=== PATIENT | female | born 1935 | race Caucasian/White ===

== ENCOUNTER → 2017-10-12 09:55 | Outpatient (CLI) | payer MEDICARE, OTHER, SELFPAY ==
--- NOTE | 2017-10-12 10:08 | XR_ITS ---
XR DEXA axial skeleton HISTORY: ITS.REASON: OSTEOPENIA ORDERING PHYSICIAN: Sasha Tamayo PATIENT AGE: 81 years COMPARISON: 12/21/2012 FINDINGS: The BMD measured at the Radius 33% is 0.608 g/cm squared with a T score of -3.1 . This is considered Osteoporotic according to the World Health Organization criteria. Fracture risk is high. Treatment is advised. Lumbar spine density from L1 to L4 has a T score of 0.7 which is similar compared to the previous exam IMPRESSION: Osteoporosis with high fracture risk. Recommend follow-up exam September 2018. Treatment is recommended
== END ==
PROVIDERS: PCP Nurse Practitioner Women's Health; Visit Provider Nurse Practitioner Women's Health
DX: M85.89 Other specified disorders of bone density and structure, multiple sites (principal)
CPT/HCPCS: 77080

== ENCOUNTER → 2018-09-19 15:53 | Outpatient (CLI) | payer MEDICARE, OTHER, SELFPAY ==
--- NOTE | 2018-09-19 15:59 | MM_ITS ---
MM Dig screening mamm BI w/CAD CAD Screening COMPARISON: Digital mammograms with CAD 06/16/2015 and 03/20/2017 INDICATIONt: The patient has had previous bilateral lumpectomies for malignancy TECHNIQUE: Standard CC and MLO images were obtained. R2 CAD reviewed. FINDINGS: There is a diffusely dense and heterogenic parenchymal pattern definitely lessening the sensitivity of mammography. There is no significant post lumpectomy scarring in either breast. There are multiple scattered benign-appearing micro and macrocalcifications in each breast. There is a biopsy clip right breast. There is no suspicious lesion and there are no suspicious microcalcifications. IMPRESSION: Diffusely dense and heterogenic parenchymal pattern with no suspicious lesion seen BI-RADS Category: 2 Benign Finding(s) RECOMMENDED FOLLOW-UP: 1YR - 1 YEAR FOLLOW-UP (A letter has been sent to the patient regarding results of the study.)
== END ==
PROVIDERS: PCP Nurse Practitioner Women's Health; Visit Provider Nurse Practitioner Women's Health
DX: Z12.31 Encounter for screening mammogram for malignant neoplasm of breast (principal)
CPT/HCPCS: 77067

== ENCOUNTER → 2018-10-20 09:00 | Outpatient (CLI) | payer MEDICARE, OTHER, SELFPAY ==
[2018-10-20 10:20] LABS: Alanine Aminotransferase 30 U/L (12-78); Albumin Level 3.7 gm/dL (3.4-5.0); Albumin/Globulin Ratio 0.9 (1.1-1.8); Alkaline Phosphatase 89 U/L (46-116); Anion Gap 15.7 mEq/L (5-15); Aspartate Amino Transferase 25 U/L (15-37); Bilirubin,Total 0.6 mg/dL (0.2-1.0); Blood Urea Nitrogen 12 mg/dL (7-18); Calcium 9.8 mg/dL (8.5-10.1); Carbon Dioxide 26 mmol/L (21.0-32.0); Chloride 101 mmol/L (98-107); Estimated Glomerular Filt Rate 53 ml/min (>60); GFR (African American) 65 ML/MIN (>60); Globulin 4.3 gm/dl (1.3-3.2); Glucose 115 mg/dL (74-106); Potassium 3.7 mmoL/L (3.5-5.1); Sodium 139 mmol/L (136-145)
== END ==
PROVIDERS: Visit Provider Nurse Practitioner Women's Health
DX: I10 Essential (primary) hypertension (principal)
CPT/HCPCS: 36415; 80053

== ENCOUNTER 2019-04-12 12:07 | Observation (INO) ==
--- NOTE | 2019-04-12 13:18 | Emergency Department Note ---
ED Disposition Clinical Impression: Syncope Disposition: Still a Patient Condition on Discharge: Good Instructions: DI for Syncope in Adults (Fainting), DI for Syncope in Children (Fainting) Referrals: Sasha Tamayo [Primary Care Provider] - - Critical Care Critical Care Time: No Attestation: On 04/12/19, the high probability of a clinically significant, sudden or life threatening deterioration of the following system(s) required my full and direct attention, intervention and personal management. The time I documented below is in addition to time spent performing reported procedures but includes the following listed in this critical care notation. Medical Decision Making - Sixto Inquiry Pt receiving controlled substance: No Sixto was queried for this patient: No Vital Signs: 04/12/19 12:08 04/12/19 12:38 04/12/19 13:08 Pulse Rate [Radial] 96 H 89 99 H Respiratory Rate 14 Blood Pressure [Right Arm] 164/101 H 161/80 H 161/93 H Blood Pressure Mean [Right Arm] 122 107 115 Blood Pressure Source [Right Arm] Automatic Cuff Blood Pressure Position [Right Arm] Supine 02 Sat by Pulse Oximetry 97 93 L 93 L Oxygen Delivery Method Room Air 04/12/19 13:50 04/12/19 14:00 04/12/19 14:59 Pulse Rate [Radial] 87 84 89 Respiratory Rate 20 Blood Pressure [Right Arm] 151/88 H 134/83 142/83 H Blood Pressure Mean [Right Arm] 109 100 102 Blood Pressure Source [Right Arm] Automatic Cuff Automatic Cuff Blood Pressure Position [Right Arm] Sitting Sitting 02 Sat by Pulse Oximetry 94 L 96 94 L Oxygen Delivery Method Room Air - Lab Data Lab Results 04/12/19 13:38: WBC 7.3, RBC 4.67, Hgb 14.3, Hct 46.1, MCV 98.7, MCH 30.7, MCHC 31.1 L, RDW 12.9, Plt Count 318, MPV 8.5, Neut % (Auto) 66.6, Lymph % (Auto) 21.9, [place] % (Auto) 8.8, Eos % (Auto) 1.5, Baso % (Auto) 1.3, Neut # (Auto) 4.9, Lymph # (Auto) 1.6, [place]ie # (Auto) 0.6, Eos # (Auto) 0.1, Baso # (Auto) 0.1 04/12/19 13:38: D-Dimer 1020 H* 04/12/19 13:55: Sodium 144, Potassium 3.0 L, Chloride 101, Carbon Dioxide 33 H, Anion Gap 13.0, BUN 23 H, Creatinine 1.00, Estimated Creat Clear 39, Estimated GFR 53 L, Est GFR ( Amer) 64, Glucose 79, Calcium 8.8, Total Bilirubin 0.4, AST 22, ALT 12, Alkaline Phosphatase 128 H, Troponin I < 0.02, Total Protein 6.8, Albumin 2.5 L, Globulin 4.3 H, Albumin/Globulin Ratio 0.6 L Result diagrams: 04/12/19 13:38 04/12/19 13:55 Orders (Tests/Meds): ED MEDICATIONS Discontinued Medications Generic Name Dose Route Start Last Admin Trade Name Freq PRN Reason Stop Dose Admin Metoprolol Tartrate 25 mg 04/12/19 13:36 04/12/19 14:03 Lopressor 25mg Tablet PO 04/12/19 13:37 25 mg ONCE STA Administration Potassium Chloride 40 meq 04/12/19 15:02 Klor-Con 20meq Tablet PO 04/12/19 15:03 ONCE ONE ORDERS Category Date Time Status Urinalysis and Microscopic Stat Lab 04/12/19 13:08 Ordered ECG repeat same Besson Stat Y 04/12/19 15:04 Ordered General Adult HPI - General Chief complaint: Syncope Stated complaint: has been passing out,heartburn Time Seen by Provider: 04/12/19 13:14 Mode of Arrival: Wheelchair Source of Information: Patient Limitations: No Limitations Description of Symptoms (Recalled from ER Triage Doc. by RN): Monday she was in her kitchen and passed out. New blood pressure meds started on Monday. had heartburn. - History of Present Illness HPI narrative: 83-year-old female. Today is a Monday. She received new medicine for blood pressure on Monday([id number]/HCTZ 12.5) instead of losartan alone. she had syncopal episode on Monday and fell on the kitchen floor for few minutes and hit her head. She lives by herself and she was able to stand up. Next day she had heartburn which she never had before. She goes to [place] and she does not have a primary care physician here in town. Today she felt dizzy and almost had the same symptoms she had at home Monday. The symptoms lasted few seconds. No chest pain. No shortness of breath. No headache. The started her on a new medication for blood pressure including losartan and hydrochlorothiazide ( Losartan 50/HCTZ 12.5). She does not have diabetes. She does not have any headache problems. She had some heart burn on Monday. The symptoms happened when she tried to stand up. Today when she felt dizzy she sat down and the sym ptoms did not occur. No history of coronary disease. Non-smoker. She takes pain medication oxycodone 20 twice a day. Also she takes thyroid medicine. 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 And history of excision of melanoma on her back over 20 years. She denied currently any chest pain or dyspnea. She looks comfortable with no distress. Onset (ago): minute(s) Radiation: non-radiation Severity: mild Severity scale (1-10): 2 Consistency: intermittent Relieving factors: none Exacerbating factors: movement Associated symptoms: denies other symptoms - Related Data Allergies Allergy/AdvReac Type Severity Reaction Status Date / Time Iodinated Contrast Media - Allergy Intermediate I-HIVES Unverified 06/13/17 15:13 Oral and [Iodinated Contrast Media - IV Dye] morphine Allergy Mild HALLUCINATI Unverified 06/13/17 15:13 ONS enoxaparin Allergy Unknown Unverified 06/13/17 15:13 [facility] History - Hepatitis A Screen Drug use history?: No High risk sexual behaviors?: No History of sexually transmitted infection?: No Currently employed?: No Childcare worker?: No Do you have indoor plumbing?: Yes Do you have electricity?: Yes Attestation statement:: This patient has been screened for Hepatitis A risk factors. - Social History Educational Level: Completed High School Alcohol Intake: never Occupational Status: retired Housing: house ROS Obtained: Yes All systems reviewed & no additional complaints - Constitutional Constitutional: Reports system reviewed and no additional complaints, except as docu - Eyes Eyes: Reports system reviewed and no additional complaints, except as docu - ENT Ears, Nose, Mouth, and Throat: Reports system reviewed and no additional complaints, except as docu - Cardiovascular Cardiovascular: Reports system reviewed and no additional complaints, except as docu - Respiratory Respiratory: Yes system reviewed and no additional complaints, except as docu - Gastrointestinal Gastrointestingal: Reports: system reviewed and no additional complaints, except as docu - Genitourinary Male Genitourinary: Reports system reviewed and no additional complaints, except as docu Female Genitourinary: Reports system reviewed and no additional complaints, except as docu - Musculoskeletal Musculoskeletal: Reports system reviewed and no additional complaints, except as docu - Integumentary/Breasts Skin/Breast: Reports system reviewed and no additional complaints, except as docu - Neurologic Neurologic: Reports system reviewed and no additional complaints, except as docu - Endocrine Endocrine: Reports system reviewed and no additional complaints, except as docu - Hematologic/Lymphatic Henatologic/Lymphatic: Reports system reviewed and no additional complaints, except as docu - Allergic/Immunologic Allergic/Immunologic: Reports system reviewed and no additional complaints, except as docu Physical Exam - General General appearance: alert, in no apparent distress - Head Head exam: atraumatic, normocephalic, normal inspection - Eye Eye exam: Present: normal appearance, PERRL, EOMI - ENT ENT exam: Present: normal exam, normal oropharynx, mucous membranes moist, TM's normal bilaterally, normal external ear exam - Neck Neck exam: Present: normal inspection, full ROM, trachea midline. Absent: meningismus, lymphadenopathy - Chest Chest inspection: Present: normal inspection, symmetric chest wall rise. Absent: tenderness - Respiratory Respiratory exam: Present: normal lung sounds bilaterally. Absent: respiratory distress - Cardiovascular Cardiovascular exam: Present: regular rate, normal rhythm. Absent: JVD - Abdominal Exam Abdominal exam: Present: soft, normal bowel sounds. Absent: distention, tenderness, guarding - Extremities Exam Extremities exam: Present: normal inspection, full ROM, normal capillary refill. Absent: calf tenderness - Back Exam Back exam: Present: normal inspection. Absent: tenderness - Neurological Exam Neurological exam: Present: alert, oriented X3 - Psychiatric Psychiatric exam: Present: normal affect, normal mood - Skin Skin exam: Present: warm, dry, intact, normal color - Lymphatic Lymphatic Findings: no adenopathy
[2019-04-12 14:28] LABS: Alanine Aminotransferase 12 U/L (12-78); Albumin Level 2.5 gm/dL (3.4-5.0); Albumin/Globulin Ratio 0.6 (1.1-1.8); Alkaline Phosphatase 128 U/L (46-116); Aspartate Amino Transferase 22 U/L (15-37); Bilirubin,Total 0.4 mg/dL (0.2-1.0); Blood Urea Nitrogen 23 mg/dL (7-18); Calcium 8.8 mg/dL (8.5-10.1); Carbon Dioxide 33 mmol/L (21.0-32.0); Chloride 101 mmol/L (98-107); Globulin 4.3 gm/dl (1.3-3.2); Glucose 79 mg/dL (74-106); Sodium 144 mmol/L (136-145); Total Protein,Serum 6.8 gm/dL (6.4-8.2)
[2019-04-12 14:35] LABS: Basophils # 0.1 K/mm3 (0-0.2); Basophils % 1.3 % (0.1-2.0); Eosinophils # 0.1 K/mm3 (0.0-0.4); Eosinophils % 1.5 % (0.1-12.0); Hematocrit 46.1 % (37.0-47.0); Hemoglobin 14.3 g/dL (12.2-16.2); Lymphocytes # 1.6 K/mm3 (0.7-4.5); Lymphocytes % 21.9 % (10-50); Mean Corpuscular HGB Conc 31.1 g/dL (31.8-35.4); Mean Corpuscular Volume 98.7 fl (81-99); Mean Platelet Volume 8.5 fl (7.4-10.4); Monocytes # 0.6 K/mm3 (0.1-1.0); Monocytes % 8.8 % (1.7-9.3); Neutrophils # 4.9 K/mm3 (1.8-7.8); Neutrophils % 66.6 % (37.0-80.0); Platelet Count 318 K/mm3 (142-424); Red Blood Count 4.67 M/mm3 (4.20-5.40); Red Cell Distribution Width 12.9 % (11.5-17.5); White Blood Count 7.3 K/mm3 (4.8-10.8)
--- NOTE | 2019-04-12 17:50 | History & Physical Report ---
*Admission Date: 04/12/19 *Chief complaint: syncope 3 days ago, dizzy today *History of present illness: Ms. Castrejon is an 83-year-old female with history of hypertension, GERD, breast cancer, melanoma (more than 30 years ago) who presented to the ER today after an episode of feeling dizzy for the second time this week. She states that she started a new medication for blood pressure last Monday which she believes was her losartan HCTZ combo. She tolerated it for a few days until Monday when she had an episode of standing after being in bed, walked to the living room sat down for a few minutes and when she got up to walk to the kitchen she passed out upon entering the kitchen falling to the floor. She denies any episode of tunnel vision, loss of bowel or bladder control, chest pain, shortness of breath. She was able to stand up after a while and had no further episodes that day. She does state that on Monday evening and she had what sounds to be vertigo type symptoms while in bed. She said while laying there she felt like she was going to fall out of bed but she was not moving. She turned her head from side to side and the sensation stopped. She states that today she had a similar episode where she felt dizzy upon entering the kitchen so she sat down on the floor until her dizziness resolved. She did not have an episode of actual syncope today. Was otherwise asymptomatic with no nausea, vomiting, chest pain. She goes to [place] and she does not have a primary care physician here in town. No history of coronary disease. Non-smoker. She takes pain medication daily but has for many years without incident. No acute distress on interview. Asymptomatic at this time. Patient was admitted to medicine for further observation and management of syncopal episode. [facility] History I have reviewed the patient's past medical history: Yes Medical History: Reports:: Cancer, Hyperlipidemia, Hypertension Denies:: Diabetes Mellitus Type 1, Diabetes Mellitus Type 2, MRSA *Have you ever received a pneumonia vaccine?: Yes *Have you received a flu vaccine this season?: Yes Other Medical History: Reports: Cataracts Other Surgeries: Yes: Cancer Surgery (X3) Amputation: No Fractures: No - *Social History Educational Level: Attended College Smoking Status: Former smoker # Packs/Day (cigarettes): 1 Alcohol Intake: current Alcohol Intake Frequency:: a few times a month *Occupational Status:: retired Housing: house *Travel in the last 8 weeks: None Family Hx:: Cancer, Diabetes, Hyperlipidemia, Hypertension Review of Systems - Review of Systems Review of systems:: pertinent systems reviewed and negative unless documented below Meds Home Medications Medication Instructions Recorded Confirmed Type Esomeprazole Magnesium [Nexium] 40 mg PO DAILY 04/12/19 04/12/19 History Felodipine [Felodipine ER] 10 mg PO DAILY 04/12/19 04/12/19 History Hydrocodone/Acetaminophen 2 mg PO DAILY 04/12/19 04/12/19 History [Hydrocodone-Acetamin 10-325 mg] Levothyroxine Sodium [Synthroid 112 mcg PO DAILY 04/12/19 04/12/19 History 112mcg (0.112mg) tablet] Losartan/Hydrochlorothiazide 1 tab PO DAILY 04/12/19 04/12/19 History [Losartan-Hctz 50-12.5 mg Tab] Allergies Allergy/AdvReac Type Severity Reaction Status Date / Time Iodinated Contrast Media - Allergy Intermediate I-HIVES Verified 04/12/19 15:47 Oral and [Iodinated Contrast Media - IV Dye] morphine Allergy Mild HALLUCINATI Verified 04/12/19 15:47 ONS enoxaparin Allergy Unknown Verified 04/12/19 15:47 Exam Vital signs and Labs for Last 24 Hours: Temp Pulse Resp BP Pulse Ox 97.9 F 75 17 154/74 H 96 04/12/19 16:17 04/12/19 16:17 04/12/19 16:17 04/12/19 16:17 04/12/19 16:17 Laboratory Results - last 24 hr 04/12/19 13:38: WBC 7.3, RBC 4.67, Hgb 14.3, Hct 46.1, MCV 98.7, MCH 30.7, MCHC 31.1 L, RDW 12.9, Plt Count 318, MPV 8.5, Neut % (Auto) 66.6, Lymph % (Auto) 21.9, [place] % (Auto) 8.8, Eos % (Auto) 1.5, Baso % (Auto) 1.3, Neut # (Auto) 4.9, Lymph # (Auto) 1.6, [place]k # (Auto) 0.6, Eos # (Auto) 0.1, Baso # (Auto) 0.1 04/12/19 13:38: D-Dimer 1020 H* 04/12/19 13:55: Sodium 144, Potassium 3.0 L, Chloride 101, Carbon Dioxide 33 H, Anion Gap 13.0, BUN 23 H, Creatinine 1.00, Estimated Creat Clear 39, Estimated GFR 53 L, Est GFR ( Amer) 64, Glucose 79, Calcium 8.8, Total Bilirubin 0.4, AST 22, ALT 12, Alkaline Phosphatase 128 H, Troponin I < 0.02, Total Protein 6.8, Albumin 2.5 L, Globulin 4.3 H, Albumin/Globulin Ratio 0.6 L I & O for Last 24 hours: Intake & Output 04/09/19 04/10/19 04/11/19 04/12/19 23:59 23:59 23:59 23:59 Weight 56.699 kg - Constitutional no acute distress, average body habitus - *Routine HEENT Exam Head: Present: normocephalic Eye: Present: EOMI, PERRL ENT: Present: mucous membranes moist - *Routine Neck Exam Present: supple. Absent: JVD, carotid bruit, lymphadenopathy - *Routine Respiratory Exam Present: CTA bilaterally - *Routine Cardiovascular Exam Present: RRR, Normal S1, Normal S2. Absent: murmur - *Routine Abdominal Exam Present: soft, normoactive bowel sounds. Absent: tenderness - *Routine Extremities Exam Present: pulses intact, normal capillary refill. Absent: cyanosis, clubbing, edema - *Routine Skin Exam Present: warm. Absent: rash - *Routine Neurological Exam Present: alert, oriented X3 Assessment and Plan (1) Hypokalemia Current visit: Yes Status: Acute Category: Medical Code(s): E87.6 - Hypokalemia We will hold HCTZ. Replete via IV and oral. Suspect due to diuretic usage. (2) Elevated BUN Current visit: Yes Status: Acute Category: Medical Code(s): R79.9 - A bnormal finding of blood chemistry, unspecified While patient does not have agus MYESHA or elevation in creatinine from labs obtained 6 months ago, her BUN has doubled in the past 6 months and suspect she is intravascularly depleted. We will give lactated Ringer's 1 L over 2 hours. 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 (5) Hypertension Current visit: Yes Status: Chronic Qualifiers: Hypertension type: essential hypertension Qualified Code(s): I10 - Essential (primary) hypertension Category: Medical Code(s): I10 - Essential (primary) hypertension Continue flow to pain, losartan. Initiated metoprolol for rate control as her EKG in the ER shows concern for multifocal atrial tachycardia. Stopped HCTZ. (6) GERD (gastroesophageal reflux disease) Current visit: Yes Status: Chronic Category: Medical Code(s): K21.9 - Gastro-esophageal reflux disease without esophagitis Continue home Nexium (7) Syncope Current visit: Yes Status: Acute Qualifiers: Syncope type: unspecified Qualified Code(s): R55 - Syncope and collapse Category: Medical Code(s): R55 - Syncope and collapse Symptoms sound highly suggestive of vasovagal syncope. Additionally patient's labs concerning for some mild dehydration. We will rehydrate and monitor on telemetry overnight. Recommended she ambulate with assistance while here to see if we can produce an episode similar to what she experienced at home. If no further episode while admitted overnight, anticipate discharge tomorrow with follow-up in the outpatient setting. Additionally has stopped diuretic. Will transition to different medications for blood pressure management.
[2019-04-13 07:21] LABS: Basophils # 0.2 K/mm3 (0-0.2); Basophils % 2.1 % (0.1-2.0); Eosinophils # 0.3 K/mm3 (0.0-0.4); Eosinophils % 3.7 % (0.1-12.0); Hematocrit 42.8 % (37.0-47.0); Hemoglobin 13.4 g/dL (12.2-16.2); Lymphocytes # 1.8 K/mm3 (0.7-4.5); Lymphocytes % 22.7 % (10-50); Mean Corpuscular HGB Conc 31.4 g/dL (31.8-35.4); Mean Corpuscular Volume 100.5 fl (81-99); Mean Platelet Volume 8.2 fl (7.4-10.4); Monocytes # 0.5 K/mm3 (0.1-1.0); Monocytes % 6.3 % (1.7-9.3); Neutrophils % 65.2 % (37.0-80.0); Platelet Count 345 K/mm3 (142-424); Red Blood Count 4.25 M/mm3 (4.20-5.40); Red Cell Distribution Width 12.8 % (11.5-17.5); White Blood Count 7.7 K/mm3 (4.8-10.8)
[2019-04-13 07:30] LABS: Anion Gap 13.4 mEq/L (5-15); Bilirubin,Total 0.5 mg/dL (0.2-1.0); Calcium 8.5 mg/dL (8.5-10.1)
[2019-04-13 07:31] LABS: Albumin Level 2.3 gm/dL (3.4-5.0); Albumin/Globulin Ratio 0.6 (1.1-1.8); Total Protein,Serum 6.3 gm/dL (6.4-8.2)
--- NOTE | 2019-04-13 08:35 | Pharmacy Consult Notes ---
[facility] Pharmacy VTE Monitoring - Patient Demographics Admission date: 04/13/19 Report Date: 04/13/19 Time: 08:35 Allergies/Adverse Reactions: Patient Allergies Iodinated Contrast Media - Oral and [Iodinated Contrast Media - IV Dye] Allergy (Intermediate, Verified 04/12/19 15:47) I-HIVES morphine Allergy (Mild, Verified 04/12/19 15:47) HALLUCINATIONS enoxaparin Allergy (Unknown, Verified 04/12/19 15:47) Height: 1.65 m Weight: 56.699 kg Patient Problems: Current Active Problems Syncope (Acute) Hypokalemia (Acute) Elevated BUN (Acute) Constipation due to opioid therapy (Chronic) Chronic, continuous use of opioids (Chronic) Hypertension (Chronic) GERD (gastroesophageal reflux disease) (Chronic) - VTE Risk Labs: VTE Related Lab Results Hgb 13.4 g/dL (12.2-16.2) 04/13/19 06:50 Hct 42.8 % (37.0-47.0) 04/13/19 06:50 Plt Count 345 K/mm3 (142-424) 04/13/19 06:50 BUN 17 mg/dL (7-18) D 04/13/19 06:50 Creatinine 0.93 mg/dL (0.55-1.02) 04/13/19 06:50 Estimated Creat Clear 39 mL/min (50-200) 04/13/19 06:50 Was VTE Risk Assessment Performed: Yes VTE Score: 2 VTE Risk Level: Very Low Risk - Prophylaxis Types of VTE Prophylaxis: TEDS Knee High (LINDA HOSE ORDER PLACED)
--- NOTE | 2019-04-13 12:57 | Discharge Summary ---
General - General Admission date:: 04/12/19 Discharge date: 04/13/19 HPI HPI: Ms. Castrejon is an 83-year-old female with history of hypertension, GERD, breast cancer, melanoma (more than 30 years ago) who presented to the ER today after an episode of feeling dizzy for the second time this week. She states that she started a new medication for blood pressure last Monday which she believes was her losartan HCTZ combo. She tolerated it for a few days until Monday when she had an episode of standing after being in bed, walked to the living room sat down for a few minutes and when she got up to walk to the kitchen she passed out upon entering the kitchen falling to the floor. She denies any episode of tunnel vision, loss of bowel or bladder control, chest pain, shortness of breath. She was able to stand up after a while and had no further episodes that day. She does state that on Monday evening and she had what sounds to be vertigo type symptoms while in bed. She said while laying there she felt like she was going to fall out of bed but she was not moving. She turned her head from side to side and the sensation stopped. She states that today she had a similar episode where she felt dizzy upon entering the kitchen so she sat down on the floor until her dizziness resolved. She did not have an episode of actual syncope today. Was otherwise asymptomatic with no nausea, vomiting, chest pain. She goes to [place] and she does not have a primary care physician here in town. No history of coronary disease. Non-smoker. She takes pain medication daily but has for many years without incident. No acute distress on interview. Asymptomatic at this time. Patient was admitted to medicine for further observation and management of syncopal episode. Hospital Course Hospital Course: Admitted for observation due to syncopal episode. Presentation most consistent with vasovagal syncope. Additionally patient's labs concerning for some mild dehydration. Rehydrated with IV fluids during admission. Replace electrolytes as needed. Monitored on telemetry overnight. Patient had no further events and remained hemodynamically stable. Initiated metoprolol due to concern for MAT on EKG. tolerated p.o. intake. Was able to ambulate with assistance while here without difficulty. She remained hemodynamically stable with no further episode while admitted overnight. Medically stable for discharge home. Recommend she follow-up with her primary care at the [place] in the outpatient setting. Additionally stopped diuretic. Will transition to different medications for blood pressure management per PCP when she follows up with them.. Objective Vital signs: Temp Pulse Resp BP Pulse Ox 97.8 F 75 18 184/90 H 96 04/13/19 07:42 04/13/19 08:00 04/13/19 07:42 04/13/19 07:42 04/13/19 07:52 Narrative: - Constitutional no acute distress, average body habitus - *Routine HEENT Exam Head: Present: normocephalic Eye: Present: EOMI, PERRL ENT: Present: mucous membranes moist - *Routine Neck Exam Present: supple. Absent: JVD, carotid bruit, lymphadenopathy - *Routine Respiratory Exam Present: CTA bilaterally - *Routine Cardiovascular Exam Present: RRR, Normal S1, Normal S2. Absent: murmur - *Routine Abdominal Exam Present: soft, normoactive bowel sounds. Absent: tenderness - *Routine Extremities Exam Present: pulses intact, normal capillary refill. Absent: cyanosis, clubbing, edema - *Routine Skin Exam Present: warm. Absent: rash - *Routine Neurological Exam Present: alert, oriented X3 Results Labs on day of discharge: Labs from last 24 hours 04/13/19 04/13/19 04/12/19 06:50 06:50 22:05 WBC 7.7 RBC 4.25 Hgb 13.4 Hct 42.8 MCV 100.5 H MCH 31.5 H MCHC 31.4 L RDW 12.8 Plt Count 345 MPV 8.2 Neut % (Auto) 65.2 Lymph % (Auto) 22.7 [place] % (Auto) 6.3 Eos % (Auto) 3.7 Baso % (Auto) 2.1 H Neut # (Auto) 5.0 Lymph # (Auto) 1.8 [place] # (Auto) 0.5 Eos # (Auto) 0.3 Baso # (Auto) 0.2 D-Dimer Sodium 143 Potassium 3.4 L Chloride 104 Carbon Dioxide 29 Anion Gap 13.4 BUN 17 D Creatinine 0.93 Estimated Creat Clear 39 Estimated GFR 58 L Est GFR ( Amer) 70 Glucose 69 L Calcium 8.5 Magnesium 1.1 L Total Bilirubin 0.5 AST 19 ALT 9 L Alkaline Phosphatase 113 Troponin I 0.04 Total Protein 6.3 L Albumin 2.3 L Globulin 4.0 H Albumin/Globulin Ratio 0.6 L TSH 04/12/19 04/12/19 04/12/19 18:59 18:59 13:55 WBC RBC Hgb Hct MCV MCH MCHC RDW Plt Count MPV Neut % (Auto) Lymph % (Auto) [place] % (Auto) Eos % (Auto) Baso % (Auto) Neut # (Auto) Lymph # (Auto) [place] # (Auto) Eos # (Auto) Baso # (Auto) D-Dimer Sodium 144 Potassium 3.0 L Chloride 101 Carbon Dioxide 33 H Anion Gap 13.0 BUN 23 H Creatinine 1.00 Estimated Creat Clear 39 Estimated GFR 53 L Est GFR ( Amer) 64 Glucose 79 Calcium 8.8 Magnesium Total Bilirubin 0.4 AST 22 ALT 12 Alkaline Phosphatase 128 H Troponin I 0.04 < 0.02 Total Protein 6.8 Albumin 2.5 L Globulin 4.3 H Albumin/Globulin Ratio 0.6 L TSH 0.79 04/12/19 04/12/19 13:38 13:38 WBC 7.3 RBC 4.67 Hgb 14.3 Hct 46.1 MCV 98.7 MCH 30.7 MCHC 31.1 L RDW 12.9 Plt Count 318 MPV 8.5 Neut % (Auto) 66.6 Lymph % (Auto) 21.9 [place] % (Auto) 8.8 Eos % (Auto) 1.5 Baso % (Auto) 1.3 Neut # (Auto) 4.9 Lymph # (Auto) 1.6 [place] # (Auto) 0.6 Eos # (Auto) 0.1 Baso # (Auto) 0.1 D-Dimer 1020 H* Sodium Potassium Chloride Carbon Dioxide Anion Gap BUN Creatinine Estimated Creat Clear Estimated GFR Est GFR ( Amer) Glucose Calcium Magnesium Total Bilirubin AST ALT Alkaline Phosphatase Troponin I Total Protein Albumin Globulin Albumin/Globulin Ratio TSH DS: Diagnosis - Discharge Diagnosis (1) Hypokalemia Status: Acute (2) Elevated BUN Status: Acute (3) 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 (4) Chronic, continuous use of opioids Status: Chronic (5) Hypertension Status: Chronic (6) GERD (gastroesophageal reflux disease) Status: Chronic (7) Syncope Status: Acute Discharge Plan - Patient Discharge Instructions - Follow up Plan Disposition: Home, Self-Senior Living Medications: Home Medications Medication Instructions Recorded Confirmed Type Felodipine [Felodipine ER] 10 mg PO DAILY 04/12/19 04/12/19 History Hydrocodone/Acetaminophen 1 tab PO BIDP PRN 04/12/19 04/13/19 History [Hydrocodone-Acetamin 10-325 mg] Levothyroxine Sodium [Synthroid 112 mcg PO DAILY 04/12/19 04/12/19 History 112mcg (0.112mg) tablet] Losartan Potassium 50 mg PO DAILY 30 Days #30 tab 04/13/19 Rx Metoprolol Tartrate [Lopressor 12.5 mg PO BID 30 Days #30 tab 04/13/19 Rx 25mg tablet] Omeprazole 20 mg PO BID 04/13/19 04/13/19 History Oxycodone HCl [OxyCONTIN 20mg 20 mg PO BID 04/13/19 04/13/19 History tab] Sennosides/Docusate Sodium 1 tab PO BIDP PRN 30 Days #60 tab 04/13/19 Rx [Senokot-S Tablet] raNITIdine HCl [Ranitidine HCl] 300 mg PO BID 04/13/19 04/13/19 History Prescriptions/Medication Reconciliation: New Sennosides/Docusate Sodium [Senokot-S Tablet] 1 tab PO BIDP PRN 30 Days #60 tab PRN Reason: Constipation Losartan Potassium 50 mg PO DAILY 30 Days #30 tab Metoprolol Tartrate [Lopressor 25mg tablet] 12.5 mg PO BID 30 Days #30 tab Continued Levothyroxine Sodium [Synthroid 112mcg (0.112mg) tablet] 112 mcg PO DAILY Hydrocodone/Acetaminophen [Hydrocodone-Acetamin 10-325 mg] 1 tab PO BIDP PRN PRN Reason: PAIN raNITIdine HCl [Ranitidine HCl] 300 mg PO BID Oxycodone HCl [OxyCONTIN 20mg tab] 20 mg PO BID Omeprazole 20 mg PO BID Felodipine [Felodipine ER] 10 mg PO DAILY Discontinued Losartan/Hydrochlorothiazide [Losartan-Hctz 50-12.5 mg Tab] 1 tab PO DAILY - Problem Reconciliation Problems Reviewed?: Yes
--- NOTE | 2019-04-14 14:12 | Electrocardiograph Report ---
APPROVED REPORT Exam: Resting ECG HR:69 bpm ECG Measurements Heart Rate 69 AXES [place] 188 P 81 QRSd 88 QRS 58 QT 408 T46 QTc 437 <Conclusion> Normal sinus rhythm ST abnormality, nonspecific, unchanged from prior Abnormal ECG Electronically signed by : Alfie Nevarez, 04/14/2019 14:12:23
--- NOTE | 2019-04-14 14:13 | Electrocardiograph Report ---
APPROVED REPORT Exam: Resting ECG HR:114 bpm ECG Measurements Heart Rate 114 AXES [place] 156 P 64 QRSd 74 QRS 58 QT 320 T65 QTc 441 <Conclusion> Sinus tachycardia with premature atrial complexes Nonspecific ST abnormality Abnormal ECG Electronically signed by : Alfie Nevarez, 04/14/2019 14:12:35
== END 2019-04-13 13:56 | disposition home or self-care (01) ==
LOC: 2ND 12:07 → ER 12:07 → 2ND 16:46
PROVIDERS: ADMIT Internal Medicine Adolescent Medicine; ATTEND Internal Medicine Adolescent Medicine
DX: R55 Syncope and collapse; F11.90 Opioid use, unspecified, uncomplicated; Z79.899 Other long term (current) drug therapy; Z85.3 Personal history of malignant neoplasm of breast; K59.03 Drug induced constipation; I10 Essential (primary) hypertension; K21.9 Gastro-esophageal reflux disease without esophagitis; E87.6 Hypokalemia; Z85.820 Personal history of malignant melanoma of skin; E79.9 Disorder of purine and pyrimidine metabolism, unspecified
CPT/HCPCS: 36415; 70450; 71010; 71045; 80053; 83735; 84443; 84484; 85025; 85378; 93005; 99284; G0378

== ENCOUNTER 2019-10-25 11:46 | Emergency (ER) | payer MEDICARE, OTHER, SELFPAY ==
[2019-10-25 11:47] VITALS: BP 155/78; PULSE 110; RESP 21; TEMP 36.6; O2SAT 92; BMI 21.6
--- NOTE | 2019-10-25 11:59 | HMH.EDGENADL ---
ED Disposition Clinical Impression: Sacroiliac inflammation Disposition: Home, Self-Care Condition on Discharge: Good Instructions: DI for Acute Pain -- Adult, DI Sacroiliac Joint Dysfunction Prescriptions: Cyclobenzaprine HCl [Flexeril 10mg tablet] 5 mg PO TID PRN #5 tab PRN Reason: spasm Prescription Printed Naproxen 500 mg PO BID PRN #10 tab PRN Reason: pain Prescription Printed Referrals: Sasha Tamayo [Primary Care Provider] - 3 days - Critical Care Critical Care Time: No Attestation: On 10/25/19, the high probability of a clinically significant, sudden or life threatening deterioration of the following system(s) required my full and direct attention, intervention and personal management. The time I documented below is in addition to time spent performing reported procedures but includes the following listed in this critical care notation. Medical Decision Making - Medical Records Medical records reviewed: Yes: I reviewed the patient's medical records. - Sixto Inquiry Pt receiving controlled substance: No Vital Signs: 10/25/19 11:47 Temperature 97.8 F Temperature Source Oral Pulse Rate [Radial] 110 H Respiratory Rate 21 Blood Pressure [Right Arm] 155/78 H Blood Pressure Mean [Right Arm] 103 Blood Pressure Source [Right Arm] Automatic Cuff Blood Pressure Position [Right Arm] Sitting 02 Sat by Pulse Oximetry 92 L Oxygen Delivery Method Room Air - Lab Data Lab results reviewed: Yes: I reviewed the patient's lab results. Lab Results 10/25/19 12:23: Urine Color Yellow, Urine Appearance Clear, Urine pH 6.0, Ur Specific [place] 1.015, Urine Protein Negative, Urine Glucose (UA) Negative, Urine Ketones Negative, Urine Blood Trace-l, Urine Nitrate Negative, Urine Bilirubin Negative, Urine Urobilinogen 0.2, Ur Leukocyte Esterase Negative Orders (Tests/Meds): ED MEDICATIONS Discontinued Medications Generic Name Dose Route Start Last Admin Trade Name Freq PRN Reason Stop Dose Admin Cyclobenzaprine HCl 5 mg 10/25/19 11:59 10/25/19 12:04 Flexeril 10mg Tablet PO 10/25/19 12:00 5 mg ONCE ONE Administration Ketorolac Tromethamine 60 mg 10/25/19 11:59 10/25/19 12:04 Toradol 60mg/2ml Vial IM 10/25/19 12:00 60 mg ONCE ONE Administration ORDERS Category Date Time Status Urinalysis and Microscopic Stat Lab 10/25/19 12:23 Results Medical Decision Narrative: No UTI. Patient with palpable tenderness around the SI joint and lower lumbar musculature. No flank pain, abdominal pain or pulsatile mass that would suggest AAA. Has significant improvement with Toradol and Flexeril. No new trauma that would prompt imaging. Suspect sacroiliitis. Discharged home with naproxen and muscle relaxer, follow-up with PCP. General Adult HPI - General Chief complaint: PAIN Stated complaint: back pain, no accident Time Seen by Provider: 10/25/19 11:59 Mode of Arrival: Wheelchair Limitations: No Limitations Description of Symptoms (Recalled from ER Triage Doc. by RN): complaint of left lower back pain that has been going on for months. States it is better today than yesterday. - History of Present Illness HPI narrative: This is an 83-year-old female who presents to the emergency department for left lower back pain over the last week. Patient states it is worse with movement and palpation. No abdominal pain. She typically has pain in her lower back in the midline from previous L1 fracture, but this particular pain is more in the musculature and at the top of the pelvis and not so much in the midline of her back. She also complains of increased urination. No flank pain, no dysuria. She denies any fevers, vomiting. She is tried oxycodone and hydrocodone for her pain with no relief of symptoms. She has not tried any anti-inflammatories or muscle relaxers. No recent falls or trauma. Denies any loss of bowel or bladder control. - Related Data Home Medications Medicati
[2019-10-25 13:07] LABS: Appearance,Urine CLEAR (Clear); Bilirubin,Urine Negative (Negative); Blood, Urine TRACE-L (Negative); Color,Urine YELLOW (Yellow); Glucose,Urine (UA) Negative (Negative); Ketones,Urine Negative (Negative); Leukocyte Esterase,Urine Negative (Negative); Nitrate,Urine Negative (Negative); Protein,Urine Negative (Negative); Specific Gravity, Urine 1.015 (1.005-1.030); Urobilinogen,Urine 0.2 EU/dl (0.2)
[2019-10-25 13:09] LABS: Microscopic, Urine URINE MICROSCOPIC (MICROSCOPIC)
[2019-10-25 13:17] LABS: Bacteria,Urine 1+ /lpf
[2019-10-25 13:32] VITALS: BP 120/85; PULSE 87; RESP 20; TEMP 36.8; O2SAT 98
== END 2019-10-25 13:35 | disposition home or self-care (01) ==
PROVIDERS: Emergency Provider Emergency Medicine; PCP Nurse Practitioner Women's Health
DX: M46.1 Sacroiliitis, not elsewhere classified (principal); Z87.891 Personal history of nicotine dependence; Z79.899 Other long term (current) drug therapy
CPT/HCPCS: 81001; 96372; 99283; 99284

== ENCOUNTER 2019-11-24 21:01 | Emergency (ER) | payer MEDICARE, OTHER, SELFPAY ==
[2019-11-24 21:02] VITALS: BMI 21.6
--- NOTE | 2019-11-24 21:02 | CT_ITS ---
PROCEDURE: CT HEAD/BRAIN WO CON CLINICAL INDICATION: left side weakness Left-sided weakness with slurred speech, history of breast cancer and melanoma COMPARISON: CT HEAD/BRAIN WO CON from 04/12/2019 TECHNIQUE: Axial images obtained. All CT scans at the facility use one or more dose reduction, viz: automated exposure control, ma/kV adjustment per patient size (including targeted exams where dose is matched to indication, i.e. head), or iterative reconstruction technique. FINDINGS: No midline shift, mass effect, intracranial hemorrhage, hydrocephalus, or extra-axial fluid collection is evident. There is generalized atrophy with hypoattenuation of the periventricular white matter consistent with microangiopathic changes. There is an old left zygomatic arch fracture with minimal depression of the posterior fragment. This was not present on 04/12/2019. The calvarium has an unremarkable appearance. No mastoid effusion. No sinus air-fluid level. IMPRESSION: 1. No acute intracranial findings. 2. Old left zygomatic arch fracture which has developed since 04/12/2019 Dictated by: Mike Mathur MD 11/25/2019 06:39 Electronically signed by Mike Mathur MD in [place] 11/25/2019 06:39
[2019-11-24 21:07] VITALS: BP 127/65; PULSE 77; RESP 16; TEMP 36.8; O2SAT 97; BMI 21.6
--- NOTE | 2019-11-24 21:11 | HMH.EDWEAK ---
ED Disposition Clinical Impression: CVA (cerebral vascular accident) Qualifiers: CVA mechanism: unspecified Qualified Code(s): I63.9 - Cerebral infarction, unspecified Disposition: Xfer Short-Term Hosp Condition on Discharge: Good - Critical Care Critical Care Time: No Attestation: On 11/24/19, the high probability of a clinically significant, sudden or life threatening deterioration of the following system(s) required my full and direct attention, intervention and personal management. The time I documented below is in addition to time spent performing reported procedures but includes the following listed in this critical care notation. Medical Decision Making - Medical Records Medical records reviewed: Yes: I reviewed the patient's medical records. - Sixto Inquiry Pt receiving controlled substance: No Vital Signs: 11/24/19 21:07 Temperature 98.3 F Temperature Source Oral Pulse Rate [Right] 77 Respiratory Rate 16 Blood Pressure [Left Arm] 127/65 Blood Pressure Mean [Left Arm] 85 Blood Pressure Source [Left Arm] Automatic Cuff Blood Pressure Position [Left Arm] Supine 02 Sat by Pulse Oximetry 97 Oxygen Delivery Method Room Air - Lab Data Lab Results 11/24/19 21:50: WBC 11.2 H, RBC 4.69, Hgb 14.5, Hct 43.8, MCV 93.3, MCH 30.9, MCHC 33.1, RDW 14.7, Plt Count 301, MPV 8.2, Neut % (Auto) 78.0, Lymph % (Auto) 13.9, [place] % (Auto) 6.6, Eos % (Auto) 0.8, Baso % (Auto) 0.7, Neut # (Auto) 8.7 H, Lymph # (Auto) 1.6, [place] # (Auto) 0.7, Eos # (Auto) 0.1, Baso # (Auto) 0.1 11/24/19 21:50: Sodium 132 L, Potassium 3.0 L, Chloride 91 L, Carbon Dioxide 33 H, Anion Gap 11.0, BUN 55 H, Creatinine 1.60 H, Estimated Creat Clear 26, Estimated GFR 31 L, Est GFR ( Amer) 37 L, Glucose 101 H, Calcium 9.5, Total Bilirubin 0.4, AST 39 H, ALT 22, Alkaline Phosphatase 134 H, Troponin I < 0.01, Total Protein 7.3, Albumin 3.7, Globulin 3.6 H, Albumin/Globulin Ratio 1.0 L 11/24/19 22:05: Urine Color Yellow, Urine Appearance Clear, Urine pH 6.0, Ur Specific [place] 1.015, Urine Protein Trace, Urine Glucose (UA) Negative, Urine Ketones Trace, Urine Blood 1+, Urine Nitrate Negative, Urine Bilirubin Negative, Urine Urobilinogen 1.0, Ur Leukocyte Esterase Negative, Ur Squamous Epith Cells 5-10, Amorphous Sediment Trace, Hyaline Casts 3-5 11/24/19 22:05: Urine Opiates Screen Positive H, Urine Methadone Screen Negative, Ur Barbituates Screen Negative, Ur Phencyclidine Scrn Negative, Ur Amphetamines Screen Negative, U Benzodiazepines Scrn Negative, Urine Cocaine Screen Negative, U Marijuana (THC) Screen Negative Result diagrams: 11/24/19 21:50 11/24/19 21:50 Orders (Tests/Meds): ED MEDICATIONS Generic Name Dose Route Start Last Admin Trade Name Freq PRN Reason Stop Dose Admin Sodium Chloride 1,000 mls @ 999 mls/hr 11/24/19 22:30 Sod Chlor 0.9% 1000ml Bag IV 11/24/19 23:30 .[id number] LISA Discontinued Medications Generic Name Dose Route Start Last Admin Trade Name Freq PRN Reason Stop Dose Admin Potassium Chloride 20 meq 11/24/19 22:26 Klor-Con 20meq Tablet PO 11/24/19 22:27 ONCE ONE ORDERS Category Date Time Status CT head/brain wo con Stat Cat Scan 11/24/19 21:02 Taken Troponin I Q3H Lab 11/25/19 00:30 Ordered Troponin I Q3H Lab 11/25/19 03:30 Ordered ECG Request by /Nse Stat Y 11/24/19 21:21 Ordered - ECG Data Tracing #1 I reviewed this ECG and interpreted as documented below: EKG interpretation limited secondary to motion artifact. Grossly there is no STEMI and there appears to be a normal QRS width. Medical Decision Narrative: Patient is alert and communicative here, but clearly is having some difficulty with confusion. She has weakness on the left side, but also the right lower extremity. Her CT head is negative. She has mild hypokalemia, but no other significant metabolic derangement. She is afebrile and does not appear to have any signs of [employer] infection, UTI. There is n
--- NOTE | 2019-11-24 21:21 | ECG_ITS ---
APPROVED REPORT Exam: Resting ECG HR:73 bpm ECG Measurements Heart Rate 73 AXES QRSd 72 QRS 46 QT 372 T 192 QTc 409 <Conclusion> Undetermined rhythm ST & T wave abnormality, consider inferior ischemia Abnormal ECG Electronically signed by : Alfie Nevarez, 11/26/2019 15:53:04
[2019-11-24 21:31] VITALS: BP 103/41; PULSE 67; RESP 14; O2SAT 95
[2019-11-24 22:02] LABS: Basophils # 0.1 K/mm3 (0-0.2); Basophils % 0.7 % (0.1-2.0); Eosinophils # 0.1 K/mm3 (0.0-0.4); Eosinophils % 0.8 % (0.1-12.0); Hematocrit 43.8 % (37.0-47.0); Hemoglobin 14.5 g/dL (12.2-16.2); Lymphocytes # 1.6 K/mm3 (0.7-4.5); Lymphocytes % 13.9 % (10-50); Mean Corpuscular HGB Conc 33.1 g/dL (31.8-35.4); Mean Corpuscular Hemoglobin 30.9 pg (27.0-31.2); Mean Corpuscular Volume 93.3 fl (81-99); Mean Platelet Volume 8.2 fl (7.4-10.4); Monocytes # 0.7 K/mm3 (0.1-1.0); Monocytes % 6.6 % (1.7-9.3); Neutrophils # 8.7 K/mm3 (1.8-7.8); Platelet Count 301 K/mm3 (142-424); Red Blood Count 4.69 M/mm3 (4.20-5.40); Red Cell Distribution Width 14.7 % (11.5-17.5); White Blood Count 11.2 K/mm3 (4.8-10.8)
[2019-11-24 22:06] LABS: Alanine Aminotransferase 22 U/L (12-78); Albumin Level 3.7 g/dl (3.5-5.0); Alkaline Phosphatase 134 U/L (38-126); Aspartate Amino Transferase 39 U/L (14-36); Bilirubin,Total 0.4 mg/dl (0.2-1.3); Blood Urea Nitrogen 55 mg/dl (7-17); Calcium 9.5 mg/dl (8.4-10.2); Carbon Dioxide 33 mmol/L (22.0-30.0); Chloride 91 mmol/L (98-107); Creatinine Clearance Estimated 26 mL/min (50-200); Estimated Glomerular Filt Rate 31 ml/min (>60); GFR (African American) 37 ML/MIN (>60); Globulin 3.6 g/dL (1.3-3.2); Glucose 101 mg/dl (74-100); Sodium 132 mmol/L (136-145); Total Protein,Serum 7.3 g/dl (6.3-8.2)
[2019-11-24 22:08] LABS: Microscopic, Urine URINE MICROSCOPIC (MICROSCOPIC)
[2019-11-24 22:16] LABS: Appearance,Urine CLEAR (Clear); Blood, Urine 1+ (Negative); Color,Urine YELLOW (Yellow); Glucose,Urine (UA) Negative (Negative); Ketones,Urine TRACE (Negative); Leukocyte Esterase,Urine Negative (Negative); Nitrate,Urine Negative (Negative); Protein,Urine TRACE (Negative); Specific Gravity, Urine 1.015 (1.005-1.030)
[2019-11-24 22:20] LABS: Amorphous Sediment,Urine Trace /lpf; Bilirubin,Urine Negative (Negative)
[2019-11-24 22:21] LABS: Troponin I < 0.01 ng/ml (0.00-0.034)
[2019-11-24 22:31] VITALS: BP 105/46; PULSE 84; RESP 14; O2SAT 94
--- NOTE | 2019-11-24 22:44 | PC.NURSE ---
spoke with january baptiste at the [place] about consulting a for pt transfer
--- NOTE | 2019-11-24 22:45 | PC.NURSE ---
Modified [place] performed at bedside and pt passed.
[2019-11-24 22:48] LABS: Amphetamine/Metha Screen,Urine Negative ng/ml (<1000)
[2019-11-24 22:49] LABS: Barbiturates Screen,Urine Negative ng/ml (<200)
[2019-11-24 22:50] LABS: Benzodiazepines Screen,Urine Negative ng/ml (<200); Cannabinoid Screen,Urine Negative ng/ml (<50)
[2019-11-24 22:51] LABS: Cocaine Screen,Urine Negative ng/ml (<300)
[2019-11-24 22:52] LABS: Methadone Screen,Urine Negative ng/ml (<300); Opiate Screen,Urine Positive ng/ml (<300)
[2019-11-24 22:53] LABS: Phencyclidine Screen,Urine Negative ng/ml (<25)
[2019-11-24 23:22] VITALS: BP 119/55; PULSE 74; RESP 14; O2SAT 94
--- NOTE | 2019-11-24 23:22 | PC.NURSE ---
Attempted to call report to [facility] and they declined report at this time, they have not assigned a nurse to that pt yet on the 5th floor
--- NOTE | 2019-11-25 00:23 | PC.NURSE ---
Report called to [facility] and [facility] notified
[2019-11-25 00:59] VITALS: BP 113/56; PULSE 72; RESP 14; TEMP 36.8; O2SAT 94
[2019-11-25 10:06] LABS: POC Glucose,Bedside 95 (70-110)
== END 2019-11-25 01:01 | disposition short-term general hospital (02) ==
PROVIDERS: Emergency Provider Emergency Medicine
DX: I63.89 Other cerebral infarction (principal); G83.14 Monoplegia of lower limb affecting left nondominant side; Z87.891 Personal history of nicotine dependence; R29.711 NIHSS score 11; Z88.8 Allergy status to other drugs, medicaments and biological substances; E87.6 Hypokalemia; I10 Essential (primary) hypertension; E78.5 Hyperlipidemia, unspecified; Z79.899 Other long term (current) drug therapy
CPT/HCPCS: 70450; 80053; 80305; 81001; 82962; 84484; 85025; 93005; 96365; 99284

== ENCOUNTER 2019-12-28 12:28 | Emergency (ER) | payer MEDICARE, OTHER, SELFPAY ==
[2019-12-28] VITALS (7 sets, daily range): BP systolic 128–177; BP diastolic 56–87; PULSE 61–78; RESP 16–18; TEMP 36.6–36.9; O2SAT 98–100; BMI 25.7
--- NOTE | 2019-12-28 12:43 | XR_ITS ---
PROCEDURE: XR CHEST PORTABLE CLINICAL HISTORY: ams Altered mental status, altered level of consciousness, confusion, disorientation COMPARISON: XR CHEST PORTABLE from 04/12/2019 FINDINGS: The cardiomediastinal silhouette and pulmonary vascularity are within normal limits. The lungs are clear without infiltrates, suspicious nodules, or pleural effusions. SURGICAL CLIPS ARE PRESENT IN THE RIGHT AXILLA. PRIOR RIGHT SHOULDER ARTHROPLASTY IMPRESSION: No acute findings. Dictated by: Mike Mathur MD 12/28/2019 14:00 Electronically signed by Mike Mathur MD in [facility] 12/28/2019 14:00
--- NOTE | 2019-12-28 12:45 | CT_ITS ---
PROCEDURE: CT HEAD/BRAIN WO CON CLINICAL INDICATION: ams Altered mental status, altered level of consciousness, confusion, disorientation COMPARISON: CT HEAD/BRAIN WO CON from 11/24/2019 TECHNIQUE: Axial images obtained. All CT scans at the facility use one or more dose reduction, viz: automated exposure control, ma/kV adjustment per patient size (including targeted exams where dose is matched to indication, i.e. head), or iterative reconstruction technique. FINDINGS: EXAM IS LIMITED SECONDARY TO PATIENT POSITIONING. NO MIDLINE SHIFT, MASS EFFECT, INTRACRANIAL HEMORRHAGE, OR HYDROCEPHALUS IS EVIDENT. THERE ARE PERIVENTRICULAR ISCHEMIC GLIOTIC CHANGES WITH ATROPHY. IMPRESSION: NO ACUTE FINDING Dictated by: Mike Mathur MD 12/28/2019 13:59 Electronically signed by Mike Mathur MD in [facility] 12/28/2019 13:59
--- NOTE | 2019-12-28 12:50 | PC.NURSE ---
rad notified of CT head order, staff stated she is in pacu with a pt and will get pt claribel.
[2019-12-28 12:59] LABS: Microscopic, Urine URINE MICROSCOPIC (MICROSCOPIC)
[2019-12-28 13:01] LABS: Appearance,Urine CLEAR (Clear); Bilirubin,Urine Negative (Negative); Blood, Urine Negative (Negative); Chloride 99 mmol/L (98-107); Color,Urine YELLOW (Yellow); Glucose,Urine (UA) Negative (Negative); Ketones,Urine Negative (Negative); Leukocyte Esterase,Urine Negative (Negative); Nitrate,Urine Negative (Negative); PH,Urine 6.5 (5.0-8.5); Potassium 3.5 mmoL/L (3.5-5.1); Protein,Urine Negative (Negative); Sodium 135 mmol/L (136-145); Urobilinogen,Urine 0.2 EU/dl (0.2)
[2019-12-28 13:02] LABS: Basophils # 0.1 K/mm3 (0-0.2); Basophils % 0.9 % (0.1-2.0); Eosinophils # 0.2 K/mm3 (0.0-0.4); Eosinophils % 2.2 % (0.1-12.0); Hematocrit 42.3 % (37.0-47.0); Hemoglobin 14.1 g/dL (12.2-16.2); Lymphocytes # 2.3 K/mm3 (0.7-4.5); Lymphocytes % 22.6 % (10-50); Mean Corpuscular HGB Conc 33.3 g/dL (31.8-35.4); Mean Corpuscular Hemoglobin 30.9 pg (27.0-31.2); Mean Corpuscular Volume 92.9 fl (81-99); Mean Platelet Volume 7.4 fl (7.4-10.4); Monocytes # 0.6 K/mm3 (0.1-1.0); Monocytes % 5.7 % (1.7-9.3); Neutrophils # 6.9 K/mm3 (1.8-7.8); Neutrophils % 68.5 % (37.0-80.0); Platelet Count 336 K/mm3 (142-424); Red Blood Count 4.56 M/mm3 (4.20-5.40); Red Cell Distribution Width 14.1 % (11.5-17.5); White Blood Count 10.1 K/mm3 (4.8-10.8)
[2019-12-28 13:03] LABS: Alanine Aminotransferase 11 U/L (12-78); Aspartate Amino Transferase 20 U/L (14-36); Blood Urea Nitrogen 6 mg/dl (7-17); Creatinine Clearance Estimated 47 mL/min (50-200); Estimated Glomerular Filt Rate 96 ml/min (>60); GFR (African American) 116 ML/MIN (>60)
--- NOTE | 2019-12-28 13:03 | PC.NURSE ---
Lab coming to draw blood cultures.
[2019-12-28 13:04] LABS: Albumin Level 3.3 g/dl (3.5-5.0); Alkaline Phosphatase 88 U/L (38-126); Anion Gap 10.5 mEq/L (5-15); Bilirubin,Total 0.5 mg/dl (0.2-1.3); Calcium 8.8 mg/dl (8.4-10.2); Carbon Dioxide 29 mmol/L (22.0-30.0); Globulin 3.4 g/dL (1.3-3.2); Glucose 101 mg/dl (74-100); Total Protein,Serum 6.7 g/dl (6.3-8.2)
[2019-12-28 13:05] LABS: Lactic Acid 0.9 mmol/L (0.7-2.1)
[2019-12-28 13:10] LABS: RBC,Urine Occasional #/hpf (0-3)
--- NOTE | 2019-12-28 13:19 | PC.NURSE ---
rad at bedside
--- NOTE | 2019-12-28 13:28 | PC.NURSE ---
pt to ct
--- NOTE | 2019-12-28 13:32 | PC.NURSE ---
daughter at bedside states last time pt seen normal was approx 7pm
--- NOTE | 2019-12-28 14:00 | PC.NURSE ---
poa at bedside updated on plan of care
--- NOTE | 2019-12-28 14:17 | PC.NURSE ---
v/s delayed due to attempting to obtain blood work.
--- NOTE | 2019-12-28 15:00 | PC.NURSE ---
pt arouses to painful stimuli. does not follow commands. no change after receiving narcan
--- NOTE | 2019-12-28 15:13 | PC.NURSE ---
called [facility] about possible transfer. [facility] will return call.
--- NOTE | 2019-12-28 15:19 | HMH.EDAMS ---
ED Disposition Clinical Impression: Altered mental status Disposition: Xfer Short-Term Hosp Condition on Discharge: Good Instructions: DI for Altered Mental Status Additional Instructions: Dr. Voss is the accepting physician. Referrals: Provider,Referral, MD [Primary Care Provider] - Forms: Transfer Record - ED - Critical Care Critical Care Time: No Attestation: On 12/28/19, the high probability of a clinically significant, sudden or life threatening deterioration of the following system(s) required my full and direct attention, intervention and personal management. The time I documented below is in addition to time spent performing reported procedures but includes the following listed in this critical care notation. Medical Decision Making - Medical Records Medical records reviewed: Yes: I reviewed the patient's medical records. - [place]xt[place] Inquiry Pt receiving controlled substance: No Vital Signs: 12/28/19 12:28 12/28/19 12:59 12/28/19 13:23 Temperature 98.4 F Temperature Source Rectal Pulse Rate [Left Radial] 64 61 67 Respiratory Rate 18 Blood Pressure [Right Arm] 128/56 L 133/64 162/76 H Blood Pressure Mean [Right Arm] 80 87 104 Blood Pressure Source [Right Arm] Automatic Cuff Automatic Cuff Blood Pressure Position [Right Arm] Sitting Sitting Supine 02 Sat by Pulse Oximetry 98 99 100 Oxygen Delivery Method Room Air Room Air Room Air 12/28/19 14:37 12/28/19 15:06 Temperature Temperature Source Pulse Rate [Left Radial] 71 68 Respiratory Rate Blood Pressure [Right Arm] 177/87 H 156/67 H Blood Pressure Mean [Right Arm] 117 96 Blood Pressure Source [Right Arm] Automatic Cuff Automatic Cuff Blood Pressure Position [Right Arm] Sitting Sitting 02 Sat by Pulse Oximetry 99 99 Oxygen Delivery Method Room Air - Lab Data Lab results reviewed: Yes: I reviewed the patient's lab results. Lab Results 12/28/19 12:30: WBC 10.1, RBC 4.56, Hgb 14.1, Hct 42.3, MCV 92.9, MCH 30.9, MCHC 33.3, RDW 14.1, Plt Count 336, MPV 7.4, Neut % (Auto) 68.5, Lymph % (Auto) 22.6, [place] % (Auto) 5.7, Eos % (Auto) 2.2, Baso % (Auto) 0.9, Neut # (Auto) 6.9, Lymph # (Auto) 2.3, [place] # (Auto) 0.6, Eos # (Auto) 0.2, Baso # (Auto) 0.1 12/28/19 12:30: Sodium 135 L, Potassium 3.5, Chloride 99, Carbon Dioxide 29, Anion Gap 10.5, BUN 6 L, Creatinine 0.60, Estimated Creat Clear 47, Estimated GFR 96, Est GFR ( Amer) 116, Glucose 101 H, Calcium 8.8, Total Bilirubin 0.5, AST 20, ALT 11 L, Alkaline Phosphatase 88, Total Protein 6.7, Albumin 3.3 L, Globulin 3.4 H, Albumin/Globulin Ratio 1.0 L 12/28/19 12:30: Urine Color Yellow, Urine Appearance Clear, Urine pH 6.5, Ur Specific [place] 1.020, Urine Protein Negative, Urine Glucose (UA) Negative, Urine Ketones Negative, Urine Blood Negative, Urine Nitrate Negative, Urine Bilirubin Negative, Urine Urobilinogen 0.2, Ur Leukocyte Esterase Negative, Urine RBC Occasional, Urine WBC 3-5, Ur Squamous Epith Cells 10-20, Urine Bacteria None 12/28/19 12:30: Lactate 0.9 Result diagrams: 12/28/19 12:30 12/28/19 12:30 Orders (Tests/Meds): ED MEDICATIONS Discontinued Medications Generic Name Dose Route Start Last Admin Trade Name Josey PRN Reason Stop Dose Admin Naloxone HCl 4 mg 12/28/19 14:30 12/28/19 14:20 Narcan 2mg/2ml Syringe IV 12/28/19 14:31 4 mg ONCE ONE Administration ORDERS Category Date Time Status Drug Screen,Urine Stat Lab 12/28/19 12:30 Received Rapid Coronavirus-19 IgG/IgM Stat Lab 12/28/19 12:30 Received Blood Culture Stat Micro 12/28/19 12:44 Ordered - CT Data CT Scan: Head Time Received: 16:00 Preliminary Findings: Normal/NAD Medical Decision Narrative: It appears patient may be intoxicated on opiates. I did give her 4 mg of Narcan IV she had somewhat of a response to it but she is now sleeping again. [facility]. Altered Mental Status HPI - General Chief Complaint: Alte
--- NOTE | 2019-12-28 15:34 | PC.NURSE ---
Dr monroy speaking with [facility] at this time.
[2019-12-28 15:57] LABS: Amphetamine/Metha Screen,Urine Negative ng/ml (<1000)
[2019-12-28 15:58] LABS: Barbiturates Screen,Urine Negative ng/ml (<200); Benzodiazepines Screen,Urine Negative ng/ml (<200)
[2019-12-28 15:59] LABS: Cannabinoid Screen,Urine Negative ng/ml (<50)
[2019-12-28 16:00] LABS: Cocaine Screen,Urine Negative ng/ml (<300); Methadone Screen,Urine Negative ng/ml (<300)
[2019-12-28 16:01] LABS: Opiate Screen,Urine Negative ng/ml (<300)
[2019-12-28 16:02] LABS: Coronavirus 19 IgG Antibody Negative (Negative); Coronavirus 19 IgM Antibody Negative (Negative); Phencyclidine Screen,Urine Negative ng/ml (<25)
--- NOTE | 2019-12-28 16:07 | PC.NURSE ---
[facility] aware of transfer
--- NOTE | 2019-12-28 16:23 | PC.NURSE ---
pt's medication bottles sent with pt and her belongings
--- NOTE | 2019-12-28 16:44 | PC.NURSE ---
report called to [facility]
--- NOTE | 2019-12-28 16:46 | PC.NURSE ---
urine output 250cc
[2019-12-30 10:18] LABS: POC Glucose,Bedside 92 (70-110)
== END 2019-12-28 16:47 | disposition short-term general hospital (02) ==
PROVIDERS: Emergency Provider Family Medicine
DX: R41.82 Altered mental status, unspecified (principal); N30.00 Acute cystitis without hematuria; E78.5 Hyperlipidemia, unspecified; I10 Essential (primary) hypertension; E03.9 Hypothyroidism, unspecified; F41.9 Anxiety disorder, unspecified; Z87.891 Personal history of nicotine dependence; Z79.899 Other long term (current) drug therapy
CPT/HCPCS: 70450; 71045; 80053; 80305; 81001; 82962; 83605; 85025; 86328; 96374; 99285; J2310